=== PATIENT | male | born 1955 | race African-American/Black ===

== ENCOUNTER → 2016-09-02 | Outpatient (CLI) | payer MEDICARE, OTHER ==
[2015-02-02 16:09] VITALS: BP 139/101
[2016-09-02 14:53] LABS: CHOLESTEROL/HDL RATIO 2.9
== END | disposition home or self-care (01) ==
LOC: LAB 13:45
PROVIDERS: ATTEND Psychiatry & Neurology Psychiatry
DX: F33.3 Major depressive disorder, recurrent, severe with psychotic symptoms (principal); Z79.899 Other long term (current) drug therapy
CPT/HCPCS: 36415; 80061; 83036

== ENCOUNTER → 2016-09-02 | Outpatient (CLI) | payer MEDICARE, OTHER ==
[2015-02-02 16:09] VITALS: BP 139/101
[2016-09-02 14:32] LABS: BASO % 1 % (0-3); EOS % 1 % (0-3); HEMATOCRIT 44.5 % (39.0-53.0); HEMOGLOBIN 14.6 g/dL (13.0-17.5); LYMPH # 2.4 x10^3/uL (1.0-4.8); LYMPH % 29 % (24-48); MEAN CORPUSCULAR HEMOGLOBIN 29 pg (25-35); MEAN CORPUSCULAR HGB CONC 33 g/dL (31-37); MEAN CORPUSCULAR VOLUME 88 fL (79-100); MONO % 6 % (0-9); NEUT % 64 % (31-73); PLATELET COUNT 228 x10^3/uL (140-400); RED BLOOD COUNT 5.08 x10^6/uL (4.30-5.70); RED CELL DISTRIBUTION WIDTH 15.3 % (11.5-14.5); WHITE BLOOD COUNT 8.6 x10^3/uL (4.0-11.0)
[2016-09-02 14:54] LABS: ALBUMIN 3.7 g/dL (3.4-5.0); ALBUMIN/GLOBULIN RATIO 0.8 (1.0-1.7); CALCIUM 9.3 mg/dL (8.5-10.1); CREATININE 1.2 mg/dL (0.7-1.3); POTASSIUM 5.2 mmol/L (3.5-5.1); TOTAL BILIRUBIN 0.4 mg/dL (0.2-1.0); TOTAL PROTEIN 8.5 g/dL (6.4-8.2)
[2016-09-02 14:55] LABS: CHOLESTEROL/HDL RATIO 2.8
== END | disposition home or self-care (01) ==
LOC: LAB 13:55
PROVIDERS: ATTEND Internal Medicine Cardiovascular Disease
DX: E78.00 Pure hypercholesterolemia, unspecified (principal)
CPT/HCPCS: 36415; 80053; 80061; 85027; 86141

== ENCOUNTER → 2017-06-13 | Day surgery (SDC) | payer MEDICARE, OTHER ==
[~2017-06-13] MED LIST: PROPOFOL 20 ML IV
[2017-06-13] MEDS: IV RINGERS,LACTATED 1000ML 1,000 ML IV (08:53)
== END | disposition home or self-care (01) ==
LOC: ENDOS 07:54
DX: Z09 Encounter for follow-up examination after completed treatment for conditions other than malignant neoplasm (principal); Z87.19 Personal history of other diseases of the digestive system; K62.1 Rectal polyp; K57.30 Diverticulosis of large intestine without perforation or abscess without bleeding; E78.00 Pure hypercholesterolemia, unspecified; I10 Essential (primary) hypertension; J44.9 Chronic obstructive pulmonary disease, unspecified; Z87.39 Personal history of other diseases of the musculoskeletal system and connective tissue; Z86.69 Personal history of other diseases of the nervous system and sense organs; Z72.0 Tobacco use
CPT/HCPCS: 45380; 88305; J2704

== ENCOUNTER → 2020-01-13 | Outpatient (CLI) | payer MEDICARE, OTHER ==
[2017-06-13 10:21] VITALS: BP 135/91
[~2020-01-13] MED LIST changes: +CILO100T PO; +GABA100C6 PO; +HYDR-2765 PO; +HYDR10FO3 RC; +HYDR12.575 PO; +ISOS30TA4 PO; +LOVA20TA2 PO; +METO25TA4 PO; +MIRT15TA3 PO; +NITR0.4T22 SL; -PROPOFOL 20 ML IV; +QUET300T5 PO; +TRAZ-123 PO
--- NOTE | 2020-01-13 13:15 | RAD ---
Bilateral ankles 2 views each, bilateral feet 2 views each. HISTORY: Flat feet bilateral M 21.41, chronic ankle pain, M 25.579 Left ankle 2 views were taken of the left ankle. There is minimal hypertrophic spurring from mild arthritis. There is no fracture or other acute osseous abnormality. There is hypertrophic change between the distal tibia and fibula. Right ankle 2 views were taken of the right ankle. There is hypertrophic change between the distal tibia and fibula possibly an old injury. There is no acute fracture or acute osseous abnormality. Left foot 2 views were taken of the left foot. There is a mild bunion deformity. There is no fracture or other acute osseous abnormality. Right foot 2 views 2 views were taken of the right foot. There is a bunion deformity. There is arthritis at the first metatarsal phalangeal joint with joint space narrowing and hypertrophic spurring. There is no fracture or other acute osseous abnormality. IMPRESSION: 1. Arthritis first metatarsal phalangeal joint right foot. 2. Mild bunion deformity bilaterally. 3. No other acute abnormality noted in either foot. 4. Mild arthritis left ankle. 5. No acute osseous abnormality right ankle. Electronically signed by: Dillan Beckman MD (01/13/2020 1:12 PM) [facility]
--- NOTE | 2020-01-13 13:51 | RAD ---
PROCEDURE: KNEE BILAT 2V STUDY DATE: 01/13/2020 CLINICAL INDICATION / HISTORY: Reason: CHRONIC KNEE PAIN BILAT / Spl. Instructions: / History: . TECHNIQUE: AP, lateral, and tunnel views of the right and left knees. COMPARISON: None FINDINGS: The osseous structures are intact. The articular surfaces are smooth. The joint space is maintained. No intra-articular loose bodies. The alignment is within normal limits. The soft tissues are notable for bilateral arterial calcifications. No obvious joint effusion. No radio-opaque foreign bodies are identified. IMPRESSION: No fracture or dislocation is identified. Significant degenerative change is not shown. There are arterial vascular calcifications but the soft tissues otherwise are unremarkable. Electronically signed by: Chichi Roach MD (01/13/2020 1:48 PM) [id number]
== END | disposition home or self-care (01) ==
LOC: RAD 10:42
PROVIDERS: ATTEND Nurse Practitioner Family
DX: M21.612 Bunion of left foot (principal); M21.611 Bunion of right foot; M21.41 Flat foot [pes planus] (acquired), right foot; M13.871 Other specified arthritis, right ankle and foot; M13.872 Other specified arthritis, left ankle and foot; M54.16 Radiculopathy, lumbar region; I70.8 Atherosclerosis of other arteries; G89.29 Other chronic pain; I70.202 Unspecified atherosclerosis of native arteries of extremities, left leg; I70.201 Unspecified atherosclerosis of native arteries of extremities, right leg; M13.88 Other specified arthritis, other site; M21.42 Flat foot [pes planus] (acquired), left foot
CPT/HCPCS: 73560; 73600; 73620

== ENCOUNTER → 2020-02-20 | Outpatient (CLI) | payer MEDICARE, OTHER ==
[2017-06-13 10:21] VITALS: BP 135/91
--- NOTE | 2020-02-20 09:42 | RAD ---
MRI Lumbar Spine without contrast History: Low back pain with left leg radiculopathy Technique: Multiplanar, multi sequential noncontrast MR imaging was performed of the lumbar spine. Comparison: None Findings: Lumbar vertebral body stature is maintained. There is negligible posterior subluxation L4 relative to L5. There is advanced L4-5 degenerative disc disease, minimally at L3-4 and L2-3. There is degenerative endplate change and mild endplate edema L4-5 likely reactive/degenerative in etiology. Conus terminates near T12-L1. L1-L2: This level was not included on the axial images. Facet degenerative change and buckling of the ligamentum flavum results in mild posterior narrowing of the left neural foramen, very mild posterior narrowing on the right. Spinal canal is overall adequate. L2-L3: There is mild to moderate buckling of the ligamentum flavum and mild facet hypertrophic change. There is minimal disc osteophyte complex eccentric to the inferior distal left neural foramen and proximal extraforaminal region. There is left posterolateral annular tear. Spinal canal is adequate. There is mild posterior neural foramina compromise bilaterally. Disc osteophyte complex is near the undersurface of the exiting left L2 nerve root in the distal neural foramen and proximal extraforaminal region without displacement. L3-L4: There is mild buckling of the ligamentum flavum and facet degenerative change. There is minimal disc osteophyte complex in the inferior left neural foramen and proximal extraforaminal region. Disc osteophyte complex is near the extraforaminal left L3 nerve root without displacement. There is left posterolateral annular tear. There is very mild narrowing of the far right lateral recess. L4-L5: There is disc osteophyte complex and shallow bulge more eccentric to the far left lateral recess. There is mild buckling of the ligamentum flavum. There is mild facet degenerative change greater on the right. There is moderate narrowing of the far left lateral recess with contact of the descending left L5 nerve root, very mild narrowing of the far right lateral recess. There is mild posterior narrowing of the right neural foramen, very minimal narrowing on the left. L5-S1: Spinal canal is adequate. There is mild facet degenerative change. Right neural foramen is adequate. There is mild narrowing of the left neural foramen from posteriorly by facet. Impression: 1. There is moderate narrowing of the far left lateral recess at L4-5 with contact of the descending left L5 nerve root in part by disc osteophyte complex. 2. There is multilevel mild lumbar neural foramina compromise as described. 3. There is advanced L4-5 degenerative disc disease, minimally at L2-3 and L3-4. There is spondylosis at L4-5. Electronically signed by: Dalton Montanez MD (02/20/2020 9:39 AM) [id number]
== END | disposition home or self-care (01) ==
LOC: MRI 08:44
PROVIDERS: ATTEND Nurse Practitioner Family
DX: M51.16 Intervertebral disc disorders with radiculopathy, lumbar region (principal); M47.26 Other spondylosis with radiculopathy, lumbar region; M48.07 Spinal stenosis, lumbosacral region; M25.78 Osteophyte, vertebrae
CPT/HCPCS: 72148

== ENCOUNTER 2020-05-24 21:07 | Emergency (ER) | payer MEDICARE, OTHER ==
[~2020-05-24] VITALS: Ht 180.3 cm; Wt 88.6 kg
--- NOTE | 2020-05-24 21:39 | PHYS DOC ---
Past Medical History Past Medical History: Arthritis, Depression, Hypertension, Schizophrenia Additional Past Medical Histor: hepatitis c, psychoaffective disorder Past Surgical History: Other Additional Past Surgical Histo: liver biopsy Smoking Status: Current Every Day Smoker Alcohol Use: Occasionally Drug Use: Marijuana General Adult EDM: Chief Complaint: HALLUCINATIONS AUDIBLE/VISUAL HPI: HPI: History obtained from patient. Patient is a 65-year-old male with past medical history significant for schizoaffective disorder who presents with chief complaint of auditory visual hallucinations. He states he has had these hallucinations over the past 3 days. He states that he sees problems and goals running around. He states that people are shouting his name but no one is there. He states he has had this before. States that he is supposed to be on antipsychotic medication but is not been taking over the past week. He notes he was seen by his primary care provider a couple of days ago for chronic low back pain and did receive an epidural injection. He states his back pain is improved significantly. Denies chest pain or shortness of breath. Denies abdominal pain. Denies nausea or vomiting. States he is currently homeless and has not slept well the past week due to dropping temperatures. States he does have a history of drug use years ago but is not use any drugs recently. Denies any alcohol abuse. Denies SI or HI. No other complaints. Review of Systems: Review of Systems: Constitutional: Denies fever or chills. [] Eyes: Denies change in visual acuity. [] HENT: Denies nasal congestion or sore throat. [] Respiratory: Denies cough or shortness of breath. [] Cardiovascular: Denies chest pain or edema. [] GI: Denies abdominal pain, nausea, vomiting, bloody stools or diarrhea. [] : Denies dysuria. [] Musculoskeletal: Denies back pain or joint pain. [] Integument: Denies rash. [] Neurologic: Denies headache, focal weakness or sensory changes. [] Endocrine: Denies polyuria or polydipsia. [] Lymphatic: Denies swollen glands. [] Psychiatric: Positive for auditory visual hallucinations Heart Score: Risk Factors: Risk Factors: DM, Current or recent (<one month) smoker, HTN, HLP, family history of CAD, obesity. Risk Scores: Score 0 - 3: 2.5% MACE over next 6 weeks - Discharge Home Score 4 - 6: 20.3% MACE over next 6 weeks - Admit for Clinical Observation Score 7 - 10: 72.7% MACE over next 6 weeks - Early Invasive Strategies Allergies: Allergies: Allergies Coded Allergies Type Severity Reaction Last Updated Verified No Known Drug Allergies 06/13/17 No Physical Exam: PE: Constitutional: Well developed, well nourished, no acute distress, non-toxic appearance. [] HENT: Normocephalic, atraumatic, bilateral external ears normal, oropharynx moist, no oral exudates, nose normal. [] Eyes: PERRLA, EOMI, conjunctiva normal, no discharge. [] Neck: Normal range of motion, no tenderness, supple, no stridor. [] Cardiovascular: Tachycardic, irregular, no murmur [] Lungs & Thorax: Bilateral breath sounds clear to auscultation [] Abdomen: soft, no tenderness, no masses, no pulsatile masses. [] Skin: Warm, dry, no erythema, no rash. [] Back: No tenderness, no CVA tenderness. + 5/5 motor strength in dorsiflexion and plantarflexion of the great toes bilaterally. Sensation intact between the webbing of the first and second toes bilaterally. [] Extremities: No tenderness, no cyanosis, no clubbing, ROM intact, no edema. [] Neurologic: Alert with intact cognitive function. No aphasia, dysarthria, or neglect. GCS 15. Pupils 3 mm briskly reactive b/l. No APD present. Cranial nerves 2-12 grossly intact; no facial asymmetry present, tongue midline, shoulder shrugging strength intact. Strength 5/5 and symmetric throughout. Light touch sensation intact throughout. Cerebellar testing appropriate without evidence of dysdiadochokinesia. DTR's 2+ in all 4 extremities. Negative pronator drift bilaterally. Gait normal Psychologic: Affect normal, judgement normal, mood normal. [] Current Patient Data: Labs: Laboratory Tests Test 05/24/20 21:40 05/24/20 22:05 White Blood Count 5.3 x10^3/uL Red Blood Count 5.01 x10^6/uL Hemoglobin 14.8 g/dL Hematocrit 43.7 % Mean Corpuscular Volume 87 fL Mean Corpuscular Hemoglobin 30 pg Mean Corpuscular Hemoglobin Concent 34 g/dL Red Cell Distribution Width 15.2 % Platelet Count 166 x10^3/uL Neutrophils (%) (Auto) 57 % Lymphocytes (%) (Auto) 27 % Monocytes (%) (Auto) 16 % Eosinophils (%) (Auto) 0 % Basophils (%) (Auto) 0 % Neutrophils # (Auto) 3.0 x10^3/uL Lymphocytes # (Auto) 1.4 x10^3/uL Monocytes # (Auto) 0.8 x10^3/uL Eosinophils # (Auto) 0.0 x10^3/uL Basophils # (Auto) 0.0 x10^3/uL Sodium Level 138 mmol/L Potassium Level 3.3 mmol/L Chloride Level 101 mmol/L Carbon Dioxide Level 28 mmol/L Anion Gap 9 Blood Urea Nitrogen 32 mg/dL Creatinine 1.1 mg/dL Estimated GFR (Cockcroft-Gault) 81.8 Glucose Level 110 mg/dL Calcium Level 8.8 mg/dL Ethyl Alcohol Level < 10 mg/dL Urine Opiates Screen Neg Urine Methadone Screen Neg Urine Barbiturates Neg Urine Phencyclidine Screen Neg Urine Amphetamine/Methamphetamine Neg Urine Benzodiazepines Screen Neg Urine Cocaine Screen Neg Urine Cannabinoids Screen Pos Urine Ethyl Alcohol Neg Vital Signs: Vital Signs Date Time Temp Pulse Resp B/P (MAP) Pulse Ox O2 Delivery O2 Flow Rate FiO2 05/24/20 21:10 99.1 93 17 154/95 (114) 97 Room Air 99.1 EKG: EKG: [] EKG consistent with tachycardia. Irregular rhythm present. Intermittent P waves noted. Left axis appreciated. No ST elevation noted. QTc 500. Abnormal EKG. Radiology/Procedures: Radiology/Procedures: [][facility] [address] [place] [address] IMAGING REPORT Signed PATIENT: JIM BLOCK ACCOUNT: [id number] : 1955 LOCATION: ER AGE: 65 SEX: M EXAM STATUS: PRE ER ORD. PHYSICIAN: DAREK FARLEY DO REASON: hallucinations PROCEDURE: CT HEAD WO CONTRAST Exam: CT head INDICATION: Hallucinations TECHNIQUE: Sequential axial images through the head were obtained without the administration of IV contrast. Comparisons: None FINDINGS: No focal parenchymal lesion or hemorrhage is identified. There is no midline shift or sulcal effacement. Small lacunar infarct at the right basal ganglia. Mild patchy hypodensity in the periventricular white matter, particularly at the left frontal lobe. No acute vascular territory infarction is identified. Cardenas-white distinction is preserved. The ventricular system is within normal limits without compression hydrocephalus. The basal cisterns are well maintained. The visualized portions of the paranasal sinuses and mastoid air cells are well-pneumatized. No acute fractures. IMPRESSION: Small vessel ischemic change, technically age indeterminate without recent prior imaging. There are concerns for acute ischemia MRI would better evaluate. Exposure: One or more of the following in the visualized dose reduction techniques were utilized for this examination: 1. Automated exposure control 2. Adjustment of the MA and/or KV according to patient size Use of iterative of reconstructive technique Electronically signed by: Aj Rivas MD (05/24/2020 10:59 PM) [id number] DICTATED and SIGNED BY: AJ RIVAS MD DATE: 05/24/20 2259 Course & Med Decision Making: Course & Med Decision Making Pertinent Labs and Imaging studies reviewed. (See chart for details) [] Patient is a very pleasant 65-year-old male who presents with chief complaint of auditory and visual hallucinations. He does have a history of schizoaffective disorder. He states he has not been taking his medication over the past week. He also notes that he is homeless and has only been sleeping between bus stops. Basic work-up was obtained reveals no concerning abnormalities. I do feel his hallucinations are likely secondary to his known psychiatric disorder. Psychiatric assessment team did evaluate the patient. They do feel he is appropriate for inpatient management. He will be transferred to [facility] for further monitoring. Patient is agreement this. He continues to deny any suicidal homicidal ideations. Appropriate for discharge to [facility] at this time. Dragon Disclaimer: Dragon Disclaimer: This electronic medical record was generated, in whole or in part, using a voice recognition dictation system. Departure Departure Impression: Primary Impression: Hallucinations Additional Impression: Schizo affective schizophrenia Disposition: 65 DC/TRF TO PSYCH HOSP Condition: STABLE Referrals: ALFONSO MONTGOMERY D.O. (PCP) Patient Instructions: Schizoaffective Disorder DAREK FARLEY DO May 24, 2020 21:39
[2020-05-24 21:46] LABS: BASO % 0 % (0-3); EOS % 0 % (0-3); HEMATOCRIT 43.7 % (39.0-53.0); HEMOGLOBIN 14.8 g/dL (13.0-17.5); LYMPH # 1.4 x10^3/uL (1.0-4.8); LYMPH % 27 % (24-48); MEAN CORPUSCULAR HEMOGLOBIN 30 pg (25-35); MEAN CORPUSCULAR HGB CONC 34 g/dL (31-37); MEAN CORPUSCULAR VOLUME 87 fL (79-100); MONO # 0.8 x10^3/uL (0.0-1.1); MONO % 16 % (0-9); NEUT % 57 % (31-73); PLATELET COUNT 166 x10^3/uL (140-400); RED BLOOD COUNT 5.01 x10^6/uL (4.30-5.70); RED CELL DISTRIBUTION WIDTH 15.2 % (11.5-14.5); WHITE BLOOD COUNT 5.3 x10^3/uL (4.0-11.0)
[2020-05-24 21:56] LABS: CALCIUM 8.8 mg/dL (8.5-10.1); CREATININE 1.1 mg/dL (0.7-1.3); GFR 81.8; POTASSIUM 3.3 mmol/L (3.5-5.1)
[2020-05-24 22:22] LABS: AMPHETAMINE/METHAMPHETAMINE NEG (NEG); BARBITURATES NEG (NEG); BENZODIAZEPINES NEG (NEG); CANNABINOIDS POS (NEG); COCAINE NEG (NEG); METHADONE NEG (NEG); OPIATES NEG (NEG); PHENCYCLIDINE NEG (NEG)
--- NOTE | 2020-05-24 23:02 | RAD ---
Exam: CT head INDICATION: Hallucinations TECHNIQUE: Sequential axial images through the head were obtained without the administration of IV contrast. Comparisons: None FINDINGS: No focal parenchymal lesion or hemorrhage is identified. There is no midline shift or sulcal effacement. Small lacunar infarct at the right basal ganglia. Mild patchy hypodensity in the periventricular white matter, particularly at the left frontal lobe. No acute vascular territory infarction is identified. Cardenas-white distinction is preserved. The ventricular system is within normal limits without compression hydrocephalus. The basal cisterns are well maintained. The visualized portions of the paranasal sinuses and mastoid air cells are well-pneumatized. No acute fractures. IMPRESSION: Small vessel ischemic change, technically age indeterminate without recent prior imaging. There are concerns for acute ischemia MRI would better evaluate. Exposure: One or more of the following in the visualized dose reduction techniques were utilized for this examination: 1. Automated exposure control 2. Adjustment of the MA and/or KV according to patient size Use of iterative of reconstructive technique Electronically signed by: Aj Bobo MD (05/24/2020 10:59 PM) [id number]
[2020-05-25 00:12] VITALS: BP 148/97
--- NOTE | 2020-05-26 08:48 | EKG ---
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
== END 2020-05-25 00:31 ==
LOC: ER 21:07
DX: F20.9 Schizophrenia, unspecified (principal); M54.5 Low back pain; R20.2 Paresthesia of skin; M19.90 Unspecified osteoarthritis, unspecified site; F32.9 Major depressive disorder, single episode, unspecified; I10 Essential (primary) hypertension; F17.200 Nicotine dependence, unspecified, uncomplicated; F12.90 Cannabis use, unspecified, uncomplicated; Z98.890 Other specified postprocedural states
CPT/HCPCS: 36415; 70450; 80048; 80307; 85025; 93005; 99285; G0480